=== PATIENT | male | born 1990 | race Caucasian/White ===

== ENCOUNTER 2025-03-08 22:27 | Emergency (ER) | payer MEDICAID, SELFPAY ==
--- OUTSIDE RECORDS SUMMARY | 2025-03-08 22:29 | XMS_ITS | Clinical Summary ---
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 60 Tablet 1104Active BD Kalpana 2nd Gen Pen Needle 32 gauge x Indications:Type 2 diabetes mellitus without complication, without long-term current use of insulin (HC),HyperglycemiaAS DIRECTED REMOVE THE 2 COVERS ON THE INSULIN PEN NEEDLE BEFORE ADMINISTERING INSULIN 300 Each 4Active albuterol HFA (PRO-AIR; VENTOLIN; PROVENTIL) 90 mcg/actuation inhaler Indications:BronchospasmInhale 2 Puffs by mouth every 4 hours if needed for Shortness Of Breath or Wheezing. 1 Each 5Active eszopiclone (LUNESTA) 1 mg tablet Indications:Insomnia, idiopathicTake 1 Tablet (1 mg) by mouth at bedtime. 30 Tablet 5Active LORazepam (ATIVAN) 0.5 mg tab Indications:AnxietyTake 1 Tablet (0.5 mg) by mouth every 6 hours if needed for Anxiety. 16 Tablet 5Active cyclobenzaprine (FLEXERIL) 10 mg tablet Indications:Neck painTake 2-3 Tablets (20-30 mg) by mouth at bedtime. 225 Tablet 5Active insulin aspart (U-100) (NOVOLOG FLEXPEN) 100 unit/mL (3 mL) pen Indications:HyperglycemiaINJECT 0-12 UNITS SUBCUTANEOUS THREE TIMES DAILY WITH MEALS DIRECTED PER SLIDING SCALE 30 mL 5Active traZODone (DESYREL) 100 mg tablet Indications:Sleeping difficultyTake 2.5 Tablets (250 mg) by mouth at bedtime. 225 Tablet 5Active TribeStyle Deepika 3 Plus Sensor for continuous blood glucose monitor (CGM) Indications:Type 2 diabetes mellitus with hyperglycemia, without long-term current use of insulin (HC)To be used to read blood sugars, change sensor every 15 days. 6 Each 5Active nitroglycerin nitrator operator batch (TribeStyle Deepika 3 [place]) for continuous blood glucose monitor (CGM) Indications:Type 2 diabetes mellitus with hyperglycemia, without long-term current use of insulin (HC)To be used to read blood sugars follow scoop operator directions. 1 Each 5Active ondansetron (ZOFRAN ODT) 4 mg disintegrating tablet Indications:NauseaPlace 1 Tablet (4 mg) on the tongue every 8 hours if needed for Nausea/Vomiting. 30 Tablet 5Active insulin degludec (U-100) (TRESIBA FLEXTOUCH) 100 unit/mL (3 mL) pen Indications:Type 2 diabetes mellitus with hyperglycemia, without long-term current use of insulin (HC)Inject 25 units subcutaneous once daily in the evening. 25 mL 5Active budesonide-formoteroL (SYMBICORT,BREYNA) 80-4.5 mcg/actuation (80-4.5 mcg each actuation) inhaler Indications:Moderate persistent asthma without complication (HC)Inhale 2 puffs twice daily and 1-2 puffs every 4 hours as needed for asthma exacerbations. Max 12 puffs per day. 3 Each 5Active Active Problems ProblemNoted DateDiagnosed DateModerate persistent asthma without complication 5Chronic alcoholic antixszfehwj94/06/2023Cervical radiculopathy 03/19/2022Left arm zljyeeew12/29/2022History of fusion of cervical spine 03/19/2022Type 2 diabetes mellitus without complication, without long-term current use of qmemtga1802/19/2022urrent severe episode of major depressive disorder without psychotic rdjuwvuo77/16/2021eizure-like /01/2021 Overview (09/19/2020): Recurrent ED visits for witnessed seizure-like activity. Patient is alcohol dependent, may be withdrawal related. Cesar initiated in the emergency room on 03/08/2020. He was to follow-up with [facility], but I do not have any records from such a visit. I don't know if he has ever seen neurology. Referral placed 09/19/2020. Xebkotfydul55/18/2021lcoholic liver xemeljs8906/06/20200489Brishkptkyf88/10/2019 Mnymulyxrpeoyoha00/10/2019PTSD (post-traumatic stress disorder)03/30/2018History of alcohol owxkhnkulf13/17/8380Maskdoplrj21/17/2018 Resolved Problems ProblemNoted DateDiagnosed DateResolved DateAlcohol cogzyrliyn65/13/2022 01/09/2024Elevated lactic acid levellcohol-induced acute wxcabtofogvr704Alcoholic intoxication without complication 4Acute hjinnbuaytamf74Elevated liver trmwjvc07Hallucinationslcohol withdrawal Hypokalemia Encounters DateTypeDepartmentCare OfllQworvgulzfn08/10/2025 1:45 PM SECURITY ASSURANCE ANALYST - 01/29/2025 11:59 PM CSTHospital Encounter [facility] [address] [facility] [address] Moderate persistent asthma without complication (HC)01/29/20259071Chqssa14/01/2025 Telephone [facility] [address] [facility] [place] [address] Kristy Garcia MD Prior Authorization (insulin degludec (U-100) (TRESIBA FLEXTOUCH) 100 unit/mL (3 mL) pen APPROVED January 20, 2025 to January 20, 2026)01/18/2025 8:20 AM CDT Telemedicine [facility] [address] [place] [address] Kristy Garcia MD Asthma (coughing and hard breathing for 4 months)01/18/20259319Oszhva44/23/2025 Refill [facility] [address] [place] [address] Kristy Garcia MD Refill Request (Insulin Aspart (U-100))12/23/2024Refill [facility] [address] [place] [address] Kristy Garcia MD Refill Request (Trazodone)from Last 3 Months Immunizations ImmunizationAdministration DatesNext DueAnthrax Bjzfnog2912/23/2010,11/22/2010 COVID-19 vaccine (Dexin Interactive 30mcg/0.3mL) MD CORYV104/24/2020HepA-HepB (Twinrix)05/31/2009,10/06/2008,05/11/2008Hepatitis B (Peds)07/31/2008Hepatitis B, Uvwkjxgzekq08/22/2004,08/01/2003,06/05/2003Inactivated Polio Vaccine 05/11/2008Influenza A (H1N1), Inactivated (Age >=3 Years)05/31/2009Influenza Virus, Hqwilmmuvwk20/03/2011,12/27/2009Influenza,CCIIV4 PRESERV FREE11/14/2019 Influenza,LAIV3 Live Intranasal (Flumist)11/22/2010MMR06/05/2003Meningococcal Vaccine (Menactra)05/11/2008Td (Age >=7 Years)06/05/2003Tdap11/30/2018, 05/11/2008Typhoid (injectable)11/22/2010Varicella Nmfnpfd3801/11/2004,06/05/2003 Family History Medical HistoryRelationNameCommentsGood HealthBrotherDiabetesFatherGood Health Maternal GrandfatherCancerMaternal GrandmotherGood HealthMaternal Grandmother Good HealthMotherGood HealthPaternal GrandfatherGood HealthPaternal Grandmother Good HealthSister 1Good HealthSister 2Good HealthSister 3RelationNameStatus CommentsBrotherFatherAliveMaternal GrandfatherMaternal GrandmotherMotherAlive Paternal GrandfatherPaternal GrandmotherSister 1Sister 2Sister 3 Social History Tobacco UseTypesPacks/DayYears UsedDateSmoking Tobacco: Every RpwOhktwbdooo697 Started: 03/22/2007Passive Smoke Exposure: NeverSmokeless Tobacco: Never Tobacco Cessation:Ready to Q uit: Not Asked; Counseling Given: Not Answered Alcohol UseStandard Drinks/WeekCommentsNot Currently0 (1 standard drink = 0.6 oz pure alcohol)sober for 3 months s02PHQ-2AnswerDate RecordedPHQ-2 TOTAL PBRPY373Social ConnectionsAnswerDate RecordedDo you often feel lonely or isolated from those around you?lcohol UseAnswerDate RecordedHow often do you have a drink containing alcohol?verage Number of Drinks Not on file01/18/2025How often do you have five or more drinks on one occasion?0 01/18/2025Financial Resource StrainAnswerDate RecordedDifficulty of Paying Living Dcjkupjn372/16/2025Difficulty of Paying Living ExpensesNot on file 10/04/2024Food InsecurityAnswerDate RecordedDo you worry your food will run out before you are able to buy more?Transportation NeedsAnswerDate RecordedDoes lack of transportation keep you from medical appointments?1 10/04/2024Does lack of transportation keep you from work, meetings or getting things that you need?Housing StabilityAnswerDate RecordedWhat is your housing situation today?UtilitiesAnswerDate RecordedDo you have trouble paying for utilities (for example, heat, electricity, water, phone)?1 10/04/2024Sex and Gender InformationValueDate RecordedSex Assigned at BirthNot on fileLegal SkzMbed3104/04/2012 7:38 AM CSTGender IdentityNot on fileSexual OrientationNot on fileOccupationIndustryJob Start DateJob End Date[employer] Not on fileNot on fileNot on fileHoliday InnNot on fileNot on fileNot on fileNot on fileNot on fileNot on fileNot on filebricklayerNot on fileNot on fileNot on file Last Filed Vital Signs Vital SignReadingTime TakenCommentsBlood Xwwlftby131/7910/05/2024 7:51 AM CDT Cjrtv065310/05/2024 7:51 AM QLDXjgvencxuen87.6 ??C (97.9 ??F)11/15/2022 10:43 AM CDTRespiratory Qmmk730411/15/2022 10:43 AM CDTOxygen Zuacsacubo91%10/05/2024 7:51 AM CDTInhaled Oxygen Concentration--Zjaoun28.7 kg (169 lb)10/05/2024 7:51 AM CDT Gsffah771.3 cm (5' 11)05/10/2023 1:46 PM CSTBody Mass Index23.57005/10/2023 1:46 PM SECURITY ASSURANCE ANALYST Plan of Treatment Health MaintenanceDue DateLast DoneCommentsDepression screening for age 12+ 2002HIV for age 15-6501/06/2005Pneumococcal series for age 6-49 (1 of 2 - PCV)2009HPV series for age 9-45 (1 - 3-dose SCDM series)2017BMI (ht and wt on same day) for age 18+5005/10/2023, 07/28/2022, 03/27/2022, Additional history existsCOVID-19 vaccine series (2 - 2024- season)2024 02/21/2021Influenza Vaccine (#1), 11/22/2010, 11/22/2010, Additional history existsTetanus uwzgxwk90, 05/11/2008, 06/05/2003Lipids for age 35-4410/, 02/04/2023, 03/27/2022 Hepatitis B series for 19+Roamyvazt16/12/2010, 10/06/2008, 07/31/2008, Additional history existsHepatitis C screening for age 18-82Xdpcesxpp03/13/2020 Medical Devices ImplantedTypeAreaManufacturerDevice IdentifierShelf Expiration DateModel / Serial / LotAcis Spacer Implanted:Qty: 1 on 12/01/2018 [facility]: Cervical VertebraeDepuy Yurpy/ / .843.308Acis Spacer Implanted:Qty: 1 on 12/01/2018 [facility]: Cervical VertebraeDepStory of My Life/ / .843.307Titanium Vectra Plate Two Level Implanted:Qty: 1 on 12/01/2018 by [facility] Madd[facility], PhD at [facility]/A: Cervical VertebraeDepuy Yurpy/ / .613.1344.0mm Titanium Cervical Self Retaining Screw Self Drilling Variable Angle Implanted:Qty: 4 on 12/01/2018 by [facility]: Cervical VertebraeDepStory of My Life/ / .613.5164.0mm Titanium Cervical Self Retaining Screw Self Drilling, Fixed Angle Implanted:Qty: 2 on 12/01/2018 by Timmy Maddox MD, PhD at [facility]/A: Cervical VertebraeDepStory of My Life/ / .613.716 Procedures Procedure NamePriorityDate/TimeAssociated DiagnosisCommentsCOMPLETE PULMONARY FUNCTION TEST WITH ZNYDMIGDKORMEKCdxsmrh44/10/2025 2:00 PM SECURITY ASSURANCE ANALYST Moderate persistent asthma without complication (HC) LIPID PANEL W REFLEX MEASURED FLBOlvgtsg58/18/2024 10:27 AM CDT Type 2 diabetes mellitus without complication, without long-term current use of insulin (HC) ANTI HCVAdd On06/02/2019 10:58 AM CDT Abdominal pain, epigastric from Last 3 Months or Most Recently Relevant to Health Maintenance Results * COMPLETE PULMONARY FUNCTION TEST WITH BRONCHODILATOR (01/29/2025 2:00 PM SECURITY ASSURANCE ANALYST) Narrative [facility] - 01/29/2025 2:00 PM SECURITY ASSURANCE ANALYST Abdoulaye Bettencourt MD 01/30/2025 11:04 AM Complete Pulmonary Function Tests. Ordering Provider: Kristy Garcia MD Reason for Study: (J45.40) Moderate persistent asthma without complication (HC) ?? Date of study: 01/29/2025 Study adequacy: The study is technically adequate. DESCRIPTION: Spirometry is normal. There is no bronchodilator responsiveness. The flow volume loop is normal Lung volumes were not obtained There is a mild reduction in diffusion. IMPRESSION: Spirometry is normal. There is an isolated diffusion impairment (consider pulmonary vascular disease or pulmonary interstitial process) If there is concern for asthma, consider a methacholine challenge test. Pulmonary Function Tests describe physiology and are not independently diagnostic. ??Clinical correlation is recommended. Objective Severity Z-Score Normal > -1.645 Mild - 1.645 to -2.5 Moderate -2.5 to -4 Severe < -4 Interpretative Algorithm: Spirometry Interpretation Algorithm Lung Volume Interpretation Algorithm Diffusion Interpretation Algorithm ?? Abdoulaye Bettencourt MD Pulmonary and Sleep Medicine [facility] [phone] 01/30/2025 11:03 AM ?? Authorizing ProviderResult TypeResult StatusRobyn Kimberly Garcia MDPFT ORDFinal ResultPerforming OrganizationAddressCity/State/ZIP CodePhone Number [facility] NOW [place], [place] * (ABNORMAL) LIPID PANEL W REFLEX MEASURED LDL (01/07/2024 10:27 AM CDT) ComponentValueRef RangeTest MethodAnalysis TimePerformed AtPathologist SignatureCHOLESTEROL, GGMAI657<200 mg/dLQuest Archetype Media DaleHDL VKMDINKJBKH33> OR = 40 mg/dLQuest [facility]chetype Media GbrrULRELXSIWMWKV471(H)<150 mg/dLQuest Archetype Media DaleComment: If a non-fasting specimen was collected, consider repeat triglyceride testing on a fasting specimen if clinically indicated. Evon et al. J. of Clin. Lipidol. 2015;9:129-169. LDL-KFGDRCVNRWY85dj/dL (calc)[employer] DaleComment: Reference range: <100 Desirable range <100 mg/dL for primary prevention; <70 mg/dL for patients with CHD or diabetic patients with > or = 2 CHD risk factors. LDL-C is now calculated using the Gamaliel-Rajput calculation, which is a validated novel method providing better accuracy than the Friedewald equation in the estimation of LDL-C. Gamaliel SS et al. CARLENE. 2013;310(19): 6717-3533 (http://education.Piki/faq/IMR238) CHOL/HDLC RATIO3.1<5.0 (calc)IntuiteNON HDL LKRBAIBNQMA398 <130 mg/dL (calc)IntuiteComment: For patients with diabetes plus 1 major ASCVD risk factor, treating to a non-HDL-C goal of <100 mg/dL (LDL-C of <70 mg/dL) is considered a therapeutic option. Specimen (Source)Anatomical Location / LateralityCollection Method / Volume Collection TimeReceived TimeBloodBLOOD SPECIMEN / Cvwcmae8801/07/2024 10:27 AM CDT 01/07/2024 10:28 AM CDT Narrative Authorizing ProviderResult TypeResult StatusKristy Doughertyand MDCHEMISTRYFinal ResultPerforming OrganizationAddressCity/State/ZIP CodePhone Number TopTenRE[facility]IEWS [facility] [address] [place] [address], [facility]ostics[facility] [address] [place] [address] * ANTI HCV (06/02/2019 10:58 AM CDT)ComponentValueRef RangeTest MethodAnalysis TimePerformed AtPathologist SignatureHEPATITIS C ANTIBODYNon-Reactive Non-Rtedbqod84/16/2020 4:37 PM [facility]TALESSENT[facility] Comment:Antibodies to HCV not detected; does not exclude the possibility of exposure to HCV.Specimen (Source)Anatomical Location / LateralityCollection Method / VolumeCollection TimeReceived TimeBloodBLOOD SPECIMEN / Unknown Venipuncture / Unxczii3606/02/2019 10:58 AM CDT06/02/2019 10:58 AM CDT Narrative Authorizing ProviderResult TypeResult StatusRobyn Kimberly Garcia MDSEND OUTSFinal ResultPerforming OrganizationAddressCity/State/ZIP CodePhone Number [facility] [address] [place] [address], from Last 3 Months or Most Recently Relevant to Health Maintenance Additional Health Concerns InfectionOnset DateLast IndicatedC diff History Comment:+C diff test 08/27/2018. Enteric Precautions not required on subsequent admissions provided: 1) >3weeks since positive D diff test; 2) diarrhea resolved; and 3) patient has completed CDI antibiotics. C diff testing not required on subsequent admissions unless patient is presenting with C diff symp toms. Insurance * Guarantor: Phi Barnhart NAccount TypeRelation to PatientDate of PhoneBilling AddressPersonal/LualvpFdde1990 [address] [facility] [place] [address] * Guarantor: Phi Barnhart NAccount TypeRelation to PatientDate of PhoneBilling AddressPersonal/RrrbvlHqrc1990 [address] [facility] [place] [address] * Guarantor: Phi Barnhart NAccount TypeRelation to PatientDate of PhoneBilling AddressWorkers BmxnIktx1990 [address] [facility] [place] [address] * Guarantor: ANJLE INCAccount TypeRelation to PatientDate of BirthPhoneBilling AddressOcc Health/NcieBerfdtyl12/01/[address] [facility] [place] [address] Advance Directives * Full Code (Latest Code Status on File) Date ActivatedDate InactivatedComments07/03/2021 12:25 AM07/04/2021 12:04 PM QuestionAnswerCommentsCode Status Discussion:* Reviewed Preferences * Full Code Date ActivatedDate InactivatedComments3/ 6:41 AM06/07/2020 2:49 PMQuestion AnswerCommentsCode Status Discussion:* Per Existing Order * Full Code Date ActivatedDate YtisosyiggdIssdxpcy90/23/2020 12:50 PM02/13/2020 3:11 PM QuestionAnswerCommentsCode Status Discussion:* Discussed * Full Code Date ActivatedDate InactivatedComments12/01/2018 5:07 PM12/03/2018 3:54 PMQuestion AnswerCommentsCode Status Discussion:* Discussed * Full Code Date ActivatedDate InactivatedComments12/01/2018 12:04 PM12/01/2018 5:06 PM QuestionAnswerCommentsCode Status Discussion:* Discussed Care Teams Team MemberRelationshipSpecialtyStart DateEnd Kristy Garcia MD [address] [place] [address] PCP - GeneralFamily Qeyfftkg54/18/[address] [place] [address] Diabetes EducatorRegistered Dietician04/22/22
[2025-03-08 22:40] VITALS: BP 133/109; PULSE 120; RESP 20; TEMP 36.8; O2SAT 97
[2025-03-08 22:48] LABS: HCO3 VBG 26 mmol/L (21-28); Lactate* 1.8 mmol/L (0.5-1.9); PCO2 VBG 40 mmHG (40-50); PO2 VBG 48.2 mmHG (25-47); pH VBG 7.410 (7.32-7.43)
[2025-03-08 22:50] LABS: Hematocrit* 46.6 % (37.0-53.0); Hemoglobin* 15.4 gm/dL (13.5-17.5); Immature Granulocytes Abs Auto 0.09 K/uL (0.00-0.30); Immature Granulocytes Pct Auto 1.0 %; Lymphocytes Absolute Auto 2.12 K/uL (0.90-2.90); Mean Corpuscular HGB Conc 33 gm/dL (32-36); Mean Corpuscular Hemoglobin 31 pg (26-34); Mean Corpuscular Volume 95 fL (80-100); RDW Coefficient of Variation % 11.9 % (11.5-15.5); Red Blood Count* 4.93 m/uL (4.30-5.90); White Blood Count* 8.76 K/uL (4.50-11.00)
--- NOTE | 2025-03-08 22:52 | ED.GENADULT ---
HPI - General Adult General Date Seen: 03/08/25 Chief complaint: Dental/Oral/Mouth Injury/Pain Stated complaint: diabetes Time Seen by Provider: 03/08/25 22:40 History of Present Illness HPI narrative: 35-year-old gentleman brought to the ER today from home by EMS. Report from EMS is that he is an insulin-dependent diabetic. They were called because he is having bad tooth pain for the past 3 days then was starting to develop some confusion and altered mental status this evening. Blood sugars were elevated, initially around 370 and then up to about 400. EMS was able to start an IV and gave him 500 mL of saline and blood sugar subsequently came down again to about 370. Because of his tooth pain they administered 50 mcg of fentanyl Patient reports that he has a history of type 2 diabetes but is on long-acting insulin at night and short acting aspart insulin during the day. At he does not remember his dose of long-acting insulin. He normally takes a fixed dose of short-acting insulin with each meal and then also has a sliding scale if sugar runs high. Typically his sugars run around 200 . He mostly uses fingerstick glucometer but recently got a CGM. He has not put on yet. He does have a history of some dental fillings and had multiple fillings while he was in the . On his right mandible posterior premolar, the filling fell out or the tooth broke few weeks ago. He has been trying to get into a dentist, but has not been able to getting want to see him expeditiously. For the past 3 days he has had a big increase in pain affecting his right lower jaw, particularly that premolar. He has been trying to take [id number] medications and also use some [employer] oral new (topical benzocaine zinc chloride) applied by oral brush applicator Blue Calypso. After using the can cap he started to feel a very odd and disoriented. Related Data Home Medications ?Medication ?Instructions ?Recorded ?Confirmed cyclobenzaprine 10 mg tablet 10 mg PO QPM 01/01/24 02/06/25 fluticasone 100 mcg-salmeterol 50 1 ea inhalation BID 01/01/24 01/01/24 mcg/dose blistr powdr for inhalation (Wixela Inhub) hydroxyzine pamoate 25 mg capsule 25 - 50 mg PO BID PRN anxiety 01/01/24 02/06/25 insulin aspart U-100 100 unit/mL 0 - 12 unit subcut 3XD 01/01/24 02/06/25 (3 mL) subcutaneous pen lorazepam 0.5 mg tablet 0.5 mg PO DAILY 01/01/24 02/06/25 pen needle, diabetic 32 gauge x #1,200 ea 01/01/24 01/01/24 (BD Kalpana 2nd Gen Pen Needle) quetiapine 25 mg tablet mg PO 01/01/24 02/06/25 trazodone 100 mg tablet 200 mg PO QPM PRN 01/01/24 02/06/25 Allergies Allergy/AdvReac Type Severity Reaction Status Date / Time No Known Drug Allergies Allergy Verified 02/06/25 14:06 Exam Narrative: Exam Narrative: Constitutional: Appears well-developed and well-nourished. Alert. Conversant, and does not seem confused here in the ER. HENT: Head: Atraumatic. Nose: Nose normal. Mouth/Throat: Oral mucosa is clear and moist. He does have either a dental fracture or a missing filling from the right mandibular posterior premolar (29). I do not see any surrounding or adjacent gingival erythema. No gingival abscess. No submandibular swelling. No trismus. Tongue normal. Phonation normal. Pharynx, uvula are normal. Uvula midline. Phonation normal. no trismus. Pharynx normal. Tonsils symmetric. No tonsillar enlargement, erythema, or exudate. Eyes: Conjunctivae normal. EOM normal. Pupils equal, round, and reactive to light. No scleral icterus. Neck: Normal range of motion. Neck supple. No tracheal deviation present. Cardiovascular: Normal rate, regular rhythm. No gallop. No friction rub. No murmur heard. Symmetric radial artery pulses Pulmonary/Chest: Effort normal. No stridor. No respiratory distress. No wheezes. No rales. No rhonchi . No tenderness. Musculoskeletal: RUE: Normal range of motion. No tenderness. No deformity LUE: Normal range of motion. No tenderness. No deformity RLE: Normal range of motion. No edema. No tenderness. No deformity LLE: Normal range of motion. No edema. No tenderness. No deformity Lymph: No submental, anterior or posterior cervical adenopathy. Neurological: Alert and oriented to person, place, and time. Normal strength. CN II-VII intact. No sensory deficit. GCS eye subscore is 4. GCS verbal subscore is 5. GCS motor subscore is 6. Normal coordination Skin: Skin is warm and dry. No rash noted. No pallor. Normal capillary refill. Psychiatric: Normal mood. Normal affect. Const: Vital Signs, click to edit/add: Vital Signs - 24 hr 03/08/25 22:40 03/09/25 00:18 Temperature 98.3 F Pulse Rate [Left P ulse Oximeter] 120 H 92 Respiratory Rate 20 18 Blood Pressure [Ri ght Upper Arm] 133/109 H 134/102 H Pulse Oximetry 97 97 Oxygen Delivery Me thod Room Air Room Air Course Course ED Course: Recheck-antibiotics finished. Pain had improved after Dilaudid pain coming back a little bit. Requesting an additional dose pain medication. Will order an oral oxycodone which should last longer than the IV meds. Vital Signs Vital signs: Initial Vital Signs Temperature 98.3 F 03/08/25 22:40 Temperature Source Temporal Artery Scan 03/08/25 22:40 Pulse Rate 120 H 03/08/25 22:40 Respiratory Rate 20 03/08/25 22:40 Blood Pressure 133/109 H 03/08/25 22:40 Blood Pressure Mean 117 H 03/08/25 22:40 Blood Pressure Position High-Fowlers 03/08/25 22:40 Pulse Oximetry 97 03/08/25 22:40 Oxygen Delivery Method Room Air 03/08/25 22:40 Vital Signs Temperature 98.3 F 03/08/25 22:40 Pulse Rate 120 H 03/08/25 22:40 Respiratory Rate 20 03/08/25 22:40 Blood Pressure 133/109 H 03/08/25 22:40 Pulse Oximetry 97 03/08/25 22:40 Oxygen Delivery Method Room Air 03/08/25 22:40 Temperature 98.3 F 03/08/25 22:40 Pulse Rate 92 03/09/25 00:18 Respiratory Rate 18 03/09/25 00:18 Blood Pressure 134/102 H 03/09/25 00:18 Pulse Oximetry 97 03/09/25 00:18 Oxygen Delivery Method Room Air 03/09/25 00:18 Medications Administered Medications: Generic Name Dose Route Start Last Admin Trade Name Freq PRN Reason Stop Dose Admin Hydromorphone HCl 0.5 mg 03/08/25 22:40 03/08/25 22:50 Hydromorphone 0.5 Mg/0.5 Ml Inj IVP 0.5 mg Q1H PRN Administration Pain Discontinued Medications Generic Name Dose Route Start Last Admin Trade Name Marcos PRN Reason Stop Dose Admin Sodium Chloride 1,000 mls @ 1,000 mls/hr 03/08/25 22:45 03/09/25 00:13 0.9 % Sodium Chloride 1000 Ml IV 03/08/25 23:44 Infused .Q1H MARGE Infusion Ampicillin Sodium/Sulbactam 100 mls @ 200 mls/hr 03/08/25 22:41 03/08/25 23:51 Sodium 3 gm/ Sodium Chloride IVPB 03/08/25 23:10 Infused ONCE ONE Infusion Medical Decision Making MDM Narrative Medical decision making narrative: Pleasant 35-year-old gentleman is an insulin-dependent diabetic (he says diabetes type 2) presenting to the ER today by EMS from his home. There are couple of separate issues going on. 1. This patient presents with a tooth ache involving his right mandibular 2nd premolar. He had had a filling break loose from that tooth a few weeks ago and now has been having bad pain in that premolar for the past 3 days. He has been unable to get in to see a dentist yet. The differential diagnosis includes: cracked tooth syndrome, pulpitis, sub-apical abscess, amongst others. There is no abscess detected around the tooth amenable to incision and drainage. There is no evidence of buccinator/canine space infections, significant facial swelling, or Mike's angina. There are no posterior pharyngeal space infections detected. Suspect pulpitis. Treatment with NSAID, antibiotics. He definitely needs Follow up with a dentist/alligator trapper in the coming days is indicated for further work up and treatment. Instructions for return to the ER were reviewed with the patient. 2. He has insulin-dependent diabetes and was running hyperglycemia tonight. He also apparently was seeming confused and disoriented earlier. He did have sugar ranging up to near 400 when EMS picked him up. Here in the ER sugar is 326, trending down after receiving IV fluids. He had also given himself an 8 unit sliding scale based dose of his short-acting insulin prior to arrival. Concern here is whether not he is developing DKA. Fortunately lab workup is reassuring. He does have hyperglycemia but no evidence for a metabolic acidosis or anion gap. Bicarb is normal. Anion gap is normal. Serum pH is normal. At this point no evidence for DKA. 3. Although his mental status was confused at home, he is mentating normally here. He is polite and conversant. I do not see any signs of stroke, encephalitis, drug or alcohol intoxication or withdrawal. I do not think this was an allergic reaction to his topical benzocaine that he administered this evening although the unusual behavior did temporarily related to that. Would advise him to avoid that medication in the future. Lab Data Labs: Lab Results 03/08/25 Range/Units 22:45 WBC 8.76 (4.50-11.00) K/uL RBC 4.93 (4.30-5.90) m/uL Hgb 15.4 (13.5-17.5) gm/dL Hct 46.6 (37.0-53.0) % MCV 95 (80-100) fL MCH 31 (26-34) pg MCHC 33 (32-36) gm/dL RDW Coeff of Meeta 11.9 (11.5-15.5) % Plt Count 198 (140-440) K/uL Neut % (Auto) 65.1 (42.0-72.0) % Lymph % (Auto) 24.2 (20-44) % [place] % (Auto) 8.0 (0.0-11.0) % Eos % (Auto) 1.4 (0.0-7.0) % Baso % (Auto) 0.3 (0.0-3.0) % Neut # (Auto) 5.70 (1.7-7.0) K/uL Lymph # (Auto) 2.12 (0.90-2.90) K/uL [place] # (Auto) 0.70 (0.00-0.90) K/UL Eos # (Auto) 0.12 (0.00-0.50) K/uL Baso # (Auto) 0.03 (0.00-0.30) K/uL Abs Immat Gran (auto) 0.09 (0.00-0.30) K/uL Imm/Tot Granulo (auto) 1.0 % VBG pH 7.410 (7.32-7.43) VBG pCO2 40 (40-50) mmHG VBG pO2 48.2 H (25-47) mmHG VBG HCO3 26 (21-28) mmol/L Sodium 133 L (135-149) mmol/L Potassium 4.0 (3.6-5.1) mmol/L Chloride 101 (96-114) mmol/L Carbon Dioxide 23 (20-32) mmol/L Anion Gap 9 (7-15) mEq/L BUN 11 (5-24) mg/dL Creatinine 0.5 (0.5-1.5) mg/dL Estimated GFR 136 ml/min Glucose 326 H (60-115) mg/dL Lactate 1.8 (0.5-1.9) mmol/L Calcium 9.4 (8.4-10.6) mg/dL Discharge Plan Discharge Clinical Impression: Toothache, Dental infection, Acute hyperglycemia Patient Disposition: Home, Self-Care Condition: Stable Instructions: Toothache (ED), Diabetic Hyperglycemia (ED) Additional Instructions: As we discussed, we suspect that the pain your tooth is probably because you are developing an infection in the root of that tooth. Please start on the antibiotics today. Continue to treat your pain with Tylenol and ibuprofen. You can use the prescription pain killer (Hope Hull) if needed for pain is not controlled by other medications. Use caution, because prescription pain killers can cause dizziness, drowsiness, constipation, and can be addictive. Do not drive for 6 hours after taking a prescription pain killer. If you notice worsening swelling of your gums, swelling of your cheek or under your chin, trouble swallowing, trouble chewing, high fever, or of other worsening of her condition, please see your dentist or come back to the ER right away. Please continue to work to arrange a dental appointment. I suggest that you call the number on your dental insurance card to find out which dental clinics are in your network. You can also call the [facility] in [place] at [phone]. Please continue to take your insulin and keep her blood sugars under good control. It is important to try to keep you sugar less than 200 because this helps your immune system function more effectively. Please recheck with your regular doctor within 1-2 weeks to recheck your diabetes Prescriptions: No Action cyclobenzaprine 10 mg tablet 10 mg PO QPM trazodone 100 mg tablet 200 mg PO QPM PRN quetiapine 25 mg tablet PO insulin aspart U-100 100 unit/mL (3 mL) insulin pen 0 - 12 unit subcut 3XD (DME) pen needle, diabetic [BD Kalpana 2nd Gen Pen Needle] 32 gauge x /32 needle See Rx Instructions .ROUTE DIRECTED Qty: 1200 Rx Instructions: As directed fluticasone propion-salmeterol [Wixela Inhub] 100-50 mcg/dose blister with device 1 ea inhalation BID lorazepam 0.5 mg tablet 0.5 mg PO DAILY hydroxyzine pamoate 25 mg capsule 25 - 50 mg PO BID PRN (Reason: anxiety) Follow Up/Referrals: Kristy Garcia MD [Primary Care Provider, Obstetrics] [facility] Al[facility] Inst[facility] Procedures ABG Interpretation ABG Results: 03/08/25 22:45 VBG pH 7.410 VBG pCO2 40 VBG pO2 48.2 H VBG HCO3 26
[2025-03-08 22:56] LABS: Slide Review Reflex No
[2025-03-08 23:06] LABS: Chloride* 101 mmol/L (96-114)
[2025-03-08 23:07] LABS: Potassium* 4.0 mmol/L (3.6-5.1); Sodium* 133 mmol/L (135-149)
[2025-03-08 23:09] LABS: Blood Urea Nitrogen* 11 mg/dL (5-24); Creatinine* 0.5 mg/dL (0.5-1.5); Estimated Glomerular Filt Rate 136 ml/min
[2025-03-08 23:10] LABS: Anion Gap 9 mEq/L (7-15); Calcium* 9.4 mg/dL (8.4-10.6); Carbon Dioxide* 23 mmol/L (20-32); Glucose* 326 mg/dL (60-115)
[2025-03-08] MEDS: AMPICILLIN/SULBACTAM 3 GM in 0.9 % SODIUM CHLORIDE Mini-bag 100 ML IVPB (23:17)
[2025-03-09 00:18] VITALS: BP 134/102; PULSE 92; RESP 18; O2SAT 97
== END 2025-03-09 00:34 | disposition home or self-care (01) ==
PROVIDERS: Emergency Provider Emergency Medicine; PCP Family Medicine
DX: K08.89 Other specified disorders of teeth and supporting structures (principal); E11.65 Type 2 diabetes mellitus with hyperglycemia
CPT/HCPCS: 36415; 80048; 82803; 83605; 85025; 96361; 96365; 96375; 99283; 99284; A9270; J0295; J1171; J7030